=== PATIENT | female | born 1960 | race Caucasian/White ===

== ENCOUNTER 2017-10-23 14:08 | Emergency (ER) | payer OTHER ==
[~2017-10-23] VITALS: Ht 167.6 cm; Wt 58.1 kg
[~2017-10-23 14:08] MED LIST: CLEOCIN HCL300 MG PO; FOLIC ACID1 MG PO; LORAZEPAM 0.50.5 MG PO; METHOTREXATE 22.5 MG PO; PERCOCET 5-3251 EACH PO; PROZAC 20 MG20 M1 PO; VITAMIN B-625 MG PO; [UNRECOGNIZED DRUG - REMARK]
[2017-10-23] MEDS ORDERED: HYDROXYZINE HCL25 M1 PO (14:18)
[2017-10-23] MEDS ORDERED: ALDACTONE25 MG PO (14:18)
[2017-10-23] MEDS ORDERED: ATIVAN1 MG PO (14:19)
[2017-10-23] MEDS ORDERED: SYNTHROID100 MCG PO (14:19)
[2017-10-23] MEDS ORDERED: LIPITOR10 MG PO (14:19)
[2017-10-23] MEDS ORDERED: SULFAZINE500 MG PO (14:20)
[2017-10-23] MEDS ORDERED: NEURONTIN600 MG PO (14:20)
[2017-10-23] MEDS ORDERED: VITAMIN D2000 UNIT PO (14:22)
[2017-10-23] MEDS ORDERED: NORFLEX100 MG PO (15:43)
[2017-10-23] MEDS ORDERED: NORCO 5-325 TA1 EACH PO (15:43)
[2017-10-23] MEDS ORDERED: SENNA-DOCUSATE1 EACH PO (15:43)
[2017-10-23] MEDS ORDERED: VICODIN 5-3001 EACH PO (16:39)
[2017-10-23 16:50] VITALS: BP 118/76
== END 2017-10-23 16:52 | disposition home or self-care (01) ==
LOC: ER 14:08 → EDBD 14:08 → ER 16:52
DX: S82.62XA Displaced fracture of lateral malleolus of left fibula, initial encounter for closed fracture (principal); S16.1XXA Strain of muscle, fascia and tendon at neck level, initial encounter; S29.012A Strain of muscle and tendon of back wall of thorax, initial encounter; S80.01XA Contusion of right knee, initial encounter; M06.9 Rheumatoid arthritis, unspecified; Z90.49 Acquired absence of other specified parts of digestive tract; Z88.0 Allergy status to penicillin; W18.39XA Other fall on same level, initial encounter; Y93.K1 Activity, walking an animal; Y92.89 Other specified places as the place of occurrence of the external cause; Y99.8 Other external cause status